=== PATIENT | female | born 1960 | race Caucasian/White ===

== ENCOUNTER → 2018-09-20 | Outpatient (CLI) | payer OTHER ==
--- NOTE | 2018-09-21 14:10 | MRI ---
MRI right knee without contrast INDICATION: Knee pain twisting injury 4 days ago TECHNIQUE: Noncontrast MR imaging right knee standard protocol FINDINGS: Mild lateral patellar tracking and tilt. Grade 4 chondrosis lateral patellar facet near the apex with mild subchondral edema. Overall area measures up to 5 mm wide. Trace Faith's cyst fluid. Moderate joint effusion. Cruciate ligaments are intact with mild interstitial increased signal proximal ACL. No acute pivot shift injury. Extensor tendons are intact. There is a subchondral fracture without marked depression of the articular surface involving the lateral tibial plateau. Involved area measures 18 mm AP dimension by 50 mm wide. There is adjacent edema. No advanced overlying chondrosis. No collateral ligament disruption. Mild degenerative signal in the medial meniscus. Minimal degenerative change lateral meniscus. No focal defect. IMPRESSION: Up to grade 4 chondrosis in the patella especially lateral facet near the apex Nondisplaced subchondral fracture lateral tibial plateau with adjacent marrow edema Moderate joint effusion and tiny Faith's cyst Mild degenerative change of the menisci Electronically signed by: Jose Patel MD 09/21/2018 2:08 PM CDT
== END ==
LOC: MRI 10:38
PROVIDERS: ATTEND Family Medicine
DX: S82.192A Other fracture of upper end of left tibia, initial encounter for closed fracture (principal); M22.41 Chondromalacia patellae, right knee; M71.21 Synovial cyst of popliteal space [Baker], right knee; M17.11 Unilateral primary osteoarthritis, right knee